=== PATIENT | male | born 1965 | race Caucasian/White ===

== ENCOUNTER → 2020-12-27 | Day surgery (SDC) | payer MEDICARE ==
[~2020-12-27] MED LIST: HYDROmorphone 2 MG/ML VIAL IVP PRN; IV RINGERS,LACTATED 1000ML 1,000 ML IV SCH; LIDOCAINE 2% PF 5 ML VIAL. ONE; MORPHINE SULFATE 2 MG/ML VIAL. IVP PRN; PROCHLORPERAZINE 10 MG/2 ML VIAL. IVP PRN; PROPOFOL 10 MG/ML (20ML) VIAL. IV ONE; fentaNYL PF VIAL 100 MCG/2 ML VIAL IVP PRN
[2020-12-27 09:48] VITALS: BP 116/70
--- NOTE | 2020-12-31 14:21 | PATHOLOGY ---
[facility] Accession Number: [id number] . 01 Material submitted: . PART A: duodenum - BX OF DUODENUM POLYP PART B: rectum - RECTAL POLYPS PART C: sigmoid colon - SIGMOID COLON POLYPS PART D: colon - TRANSVERSE COLON POLYPS. Modifiers: transverse . 01 Clinical history: . EGD,COLONOSCOPY . 02 Diagnosis: A. Duodenal biopsy, duodenal polyp: - Amanda's gland nodule/hamartoma. . B. Colorectal biopsies, rectal polyps: - Tubular adenomas. - Hyperplastic polyps. . C. Colon biopsy, sigmoid colon polyp: - Hyperplastic polyp. . D. Colon biopsies, transverse colon polyp: - Tubular adenoma. (JPM:kaya; 12/31/2020) [facility] 12/31/2020 1340 Local . 02 Comment: Sections of the duodenal biopsy reveal a nodular/polypoid segment of Amanda's glands, consistent with Amanda's gland nodule/hamartoma. There are no adenomatous changes or evidence of malignancy. . Sections of the rectal biopsy reveal several tubular adenomas, in addition to multiple hyperplastic polyps. There is no high-grade dysplasia or evidence of malignancy. . Sections of the sigmoid colon biopsy reveal a hyperplastic polyp. There are no adenomatous changes or evidence of malignancy. . Sections of the transverse colon biopsy reveal a tubular adenoma showing no high-grade dysplasia or evidence of malignancy. . (JPM:pit; 12/31/2020). . 02 Electronically signed: . Kirby Owens MD, Pathologist NPI- [id number] . 01 Gross description: . A. The specimen is received in formalin, labeled "Agust[facility], biopsy of duodenal polyp". Received is a segment of pale butt tissue measuring 0.3 cm in maximum dimensions. The specimen is submitted entirely in cassette A1. . B. The specimen is received in formalin, labeled "Agustín Anish, rectal polyps". Received are multiple segments of pale butt tissue ranging in size from zero point to 0.7 cm in maximum dimensions. The specimen is submitted entirely in cassettes B1 and B2. . C. The specimen is received in formalin, labeled "Agustín Anish, sigmoid polyps". Received is a segment of pale butt tissue measuring 0.5 cm in maximum dimensions. The specimen is submitted entirely in cassette C1. Upon careful inspection and filtration, no additional tissue is found remaining within the container. . D. The specimen is received in formalin, labeled "Agustín Anish, transverse colon polyp". Received are four segments of pale butt tissue ranging in size from 0.3-0.7 cm in maximum dimensions. The specimen is submitted entirely in cassette D1. (CAA; 12/30/2020) QAC/QAC 12/30/2020 1551 Local . 02 Pathologist provided ICD-10: D12.8, K63.5, D12.3 . 02 CPT . 228892, 862317, 904053, [id number] Specimen Comment: A courtesy copy of this report has been sent to [phone] Specimen Comment: Report sent to Performed at: 01 [facility] [address] [facility] [address], [place] [id number] MD José Luis Collins MD Phone: [phone] Performed at: 02 [facility] [address], [place] [id number] MD Kirby Owens MD Phone: [phone]
== END | disposition home or self-care (01) ==
LOC: ENDOS 07:30
PROVIDERS: ATTEND Internal Medicine Gastroenterology
DX: R19.7 Diarrhea, unspecified (principal); R10.13 Epigastric pain; K29.50 Unspecified chronic gastritis without bleeding; K31.7 Polyp of stomach and duodenum; K31.89 Other diseases of stomach and duodenum; K63.89 Other specified diseases of intestine; D12.3 Benign neoplasm of transverse colon; D12.8 Benign neoplasm of rectum; M19.90 Unspecified osteoarthritis, unspecified site; Z20.822 Contact with and (suspected) exposure to COVID-19; Z90.49 Acquired absence of other specified parts of digestive tract; Z98.890 Other specified postprocedural states; Z87.891 Personal history of nicotine dependence; Z79.899 Other long term (current) drug therapy
CPT/HCPCS: 43239; 45380; 45385; 87426; 88305; J2704